=== PATIENT | male | born 1985 | race Caucasian/White ===

== ENCOUNTER 2016-10-20 17:56 | Emergency (ER) | payer OTHER ==
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
[2016-10-20] MEDS ORDERED: MOTRIN PO ONE (21:44)
[2016-10-20 22:10] VITALS: BP 135/93
== END 2016-10-20 22:11 | disposition home or self-care (01) ==
LOC: ED 17:56
DX: S09.90XA Unspecified injury of head, initial encounter (principal); Z88.8 Allergy status to other drugs, medicaments and biological substances; V89.2XXA Person injured in unspecified motor-vehicle accident, traffic, initial encounter; Y93.89 Activity, other specified; Y99.9 Unspecified external cause status; Y92.410 Unspecified street and highway as the place of occurrence of the external cause
CPT/HCPCS: 70450; 72125